=== PATIENT | male | born 1995 | race Caucasian/White ===

== ENCOUNTER 2018-12-01 06:32 | Emergency (ER) | payer BC ==
[2018-12-01] MEDS ORDERED: ONDANSETRON 4 MG/2 ML VIAL ONE (06:43)
[2018-12-01] MEDS ORDERED: NS 1,000 ML IV ONE (06:45)
--- NOTE | 2018-12-01 07:03 | EDPHY ---
H & P Time Seen by Provider: 12/01/18 06:55 HPI/ROS: HPI Lower abdominal pain. 23-year-old male by private vehicle. This patient reports that he woke up early this morning and had right lower abdominal pain which she describes as cramping and sharp. He reports that since coming to the emergency department the pain has now resolved. He had some associated nausea earlier with the pain but denies any nausea now. No vomiting. He had a bowl of cereal at 5:30 p.m.. He reports his last bowel movement was yesterday. He denies any bloody or melenic stool. No diarrhea. He has no previous abdominal surgical history. ROS: Constitutional: No fever, no chills. No weakness. Eyes: No discharge. No changes in vision. ENT: No sore throat. No nasal congestion or rhinorrhea. Respiratory: No cough. No shortness of breath. Cardiac: No chest pain, no palpitations. Gastrointestinal: As above, no vomiting, no diarrhea. Genitourinary: No hematuria. No dysuria or increased frequency with urination. Musculoskeletal: No back pain. No neck pain. No myalgias or arthralgias. Skin: No rashes. Neurological: No headache. No focal weakness or altered sensation. Past medical history: Neuro fibrosis. Social history: Here by himself. Nonsmoker. No alcohol. Physical Exam: General Appearance: Alert, no distress. This patient is responding to questions appropriately and in full sentences. This patient appears well- hydrated and well-nourished. Eyes: Pupils equal and round no pallor or injection. No lid edema, erythema or injection. Gastrointestinal: Abdomen is soft and nontender on deep palpation throughout, no masses, bowel sounds normal. No focal tenderness at McBurney's point. No Pascual sign. Testicular exam: Normal testicular lie. No clinical evidence of torsion. Unremarkable genitalia. Neurological: Motor sensory function is grossly intact. Cranial nerves are normal. Gait is normal. Skin: Warm and dry, no rashes. Musculoskeletal: Neck is supple and nontender. Extremities are symmetrical. All joints range without pain or impingement. Psychiatric: No agitation. No depression. Database: EKG: Imaging: Procedures: Emergency department course: Triage vital signs reviewed and are unremarkable. This patient has a benign abdomen. His symptoms have resolved. I feel appendicitis, testicular torsion, ureterolithiasis are unlikely. He feels comfortable going home at this time and I feel he is safe for discharge. I did discuss CT imaging. He declines this study at this time. He lives near the emergency department and can easily return should his pain return. Strict return to emergency department precautions were reviewed with him. Follow-up was discussed. All of his questions were answered. He was discharged from the emergency department in good condition. Differential Diagnosis: The differential diagnosis on this patient includes but is not limited to constipation, transient colonic spasm. Appendicitis, testicular torsion, ureterolithiasis, cholecystitis, volvulus, other surgical etiology unlikely. This represents a partial list of diagnoses considered. These considerations are based on history, physical exam, past history, reassessment and diagnostic testing. Smoking Status: Never smoked Constitutional: Initial Vital Signs Temperature (C) 36.8 C 12/01/18 06:38 Heart Rate 82 12/01/18 06:38 Respiratory Rate 17 12/01/18 06:38 Blood Pressure 131/77 H 12/01/18 06:38 O2 Sat (%) 95 12/01/18 06:38 O2 Delivery Mode Room Air Allergies/Adverse Reactions: No Known Allergies Allergy (Unverified 12/01/18 06:40) Home Medications: Medication Instructions Recorded NK [No Known Home Meds] 12/01/18 Medical Decision Making - Data Points Laboratory Results: 12/01/18 12/01/18 06:50 06:50 WBC Pending RBC Pending Hgb Pending Hct Pending MCV Pending MCH Pending MCHC Pending RDW Pending Plt Count Pending MPV Pending Neut % (Auto) Pending Lymph % (Auto) Pending [place] % (Auto) Pending Eos % (Auto) Pending Baso % (Auto) Pending Nucleat RBC Rel Count Pending Absolute Neuts (auto) Pending Absolute Lymphs (auto) Pending Absolute Monos (auto) Pending Absolute Eos (auto) Pending Absolute Basos (auto) Pending Absolute Nucleated RBC Pending Immature Gran % Pending Immature Gran # Pending Sodium Pending Potassium Pending Chloride Pending Carbon Dioxide Pending Anion Gap Pending BUN Pending Creatinine Pending Estimated GFR Pending Glucose Pending Calcium Pending Total Bilirubin Pending Conjugated Bilirubin Pending Unconjugated Bilirubin Pending AST Pending ALT Pending Alkaline Phosphatase Pending Total Protein Pending Albumin Pending Lipase Pending Medications Given: Discontinued Medications Sodium Chloride (Ns) 1,000 mls @ 0 mls/hr IV EDNOW ONE; Wide Open PRN Reason: Protocol Stop: 12/01/18 06:46 Last Admin: 12/01/18 06:51 Dose: 1,000 mls Departure - Departure Disposition: Home, Routine, Self-Care Clinical Impression: Transient abdominal pain, Abdominal pain Condition: Good Instructions: Acute Abdominal Pain (ED) Additional Instructions: Read and follow provided instructions. Follow-up with your primary care physician in 1-2 days for re-evaluation as needed. Most important, return to the emergency department for return of abdominal pain , worsening pain, vomiting, fever, testicular pain or other serious concerns. Referrals: NONE *PRIMARY CARE P,. [Primary Care Provider] - As per Instructions
[2018-12-01 07:12] LABS: PLATELET COUNT 142 10^3/uL (150-400)
[2018-12-01 07:22] VITALS: BP 125/78
== END 2018-12-01 07:23 | disposition home or self-care (01) ==
DX: R10.31 Right lower quadrant pain (principal); E86.9 Volume depletion, unspecified
CPT/HCPCS: J2405